=== PATIENT | male | born 1970 | race Caucasian/White ===

== ENCOUNTER 2016-10-20 10:41 | Emergency (ER) | payer BC | END 2016-10-20 12:24 | disposition home or self-care (01) | LOC: ER1 10:41 | DX: S39.012A Strain of muscle, fascia and tendon of lower back, initial encounter (principal); M62.830 Muscle spasm of back; F17.210 Nicotine dependence, cigarettes, uncomplicated; X58.XXXA Exposure to other specified factors, initial encounter | CPT/HCPCS: 72100; 96372; 99283; J1885 ==